=== PATIENT | male | born 1955 | race Caucasian/White ===

== ENCOUNTER 2024-05-10 12:01 | Outpatient (CLI) | payer SELFPAY ==
[2024-05-10 12:40] LABS: Anion Gap 13.9 (5-19); Blood Urea Nitrogen 22 mg/dL (8-23); Calcium 9.6 mg/dL (8.5-10.5); Carbon Dioxide 28 mmol/L (22-29); Chloride 98 mmol/L (98-107); Glomerular Filtration Rate 96.1 mL/min (90-130); Glucose 144 mg/dL (65-115); Osmolality Calculated 288 mOsm/kg (285-295); Potassium 3.9 mmol/L (3.5-5.1); Sodium 136 mmol/L (136-145)
== END 2024-05-10 12:02 | disposition home or self-care (01) ==
LOC: LAB 12:03
PROVIDERS: PCP Internal Medicine; Visit Provider Thoracic Surgery (Cardiothoracic Vascular Surgery)
DX: E11.9 Type 2 diabetes mellitus without complications (principal)
CPT/HCPCS: 36415; 80048

== ENCOUNTER 2024-05-18 07:58 | Outpatient (CLI) | payer SELFPAY ==
--- NOTE | 2024-05-18 08:00 | CTR_ITS ---
PROCEDURE INFORMATION: Exam: CTA Abdominal Aorta and Bilateral Lower Extremities (Run-off) With Contrast Exam date and time: 05/18/2024 8:14 AM Age: 68 years old Clinical indication: Other: -rt anterior ankle non-healing wound x 3-4 weeks. Prior surgery; Surgery date: 6+ months; Surgery type: Abd aorta, colon resection, gb, appy, pacemaker, caridiac stents, stents in groin; Additional info: Non-healing ulcer; Pad, urgent limb in jeopardy. -rt anterior ankle non-healing wound x 3-4 weeks. TECHNIQUE: Imaging protocol: Computed tomographic angiography of the of the abdominal aorta, pelvis and bilateral lower extremities with contrast. 3D rendering (Not supervised by radiologist): MIP and/or 3D reconstructed images were created by the technologist. Radiation optimization: All CT scans at this facility use at least one of these dose optimization techniques: automated exposure control; mA and/or kV adjustment per patient size (includes targeted exams where dose is matched to clinical indication); or iterative reconstruction. Contrast material: OMNI 350; Contrast volume: 120 ml; Contrast route: INTRAVENOUS (IV); COMPARISON: No relevant prior studies available. RADIATION DOSE METRICS: Total DLP (mGy-cm): 1444.06 FINDINGS: Aorta: Atherosclerotic calcifications of the aorta in the iliac vessels. Minimal mural thrombus. No aneurysm. Celiac trunk and mesenteric arteries: No occlusion or significant stenosis. Renal arteries: No occlusion or significant stenosis. Right iliac arteries: Areas of mild stenosis in the right common iliac artery. Right femoral/popliteal arteries: The right superficial femoral artery is occluded at its origin. It reconstitutes at the adductor canal. Right infrapopliteal arteries: Atherosclerotic changes are present in the popliteal artery and the calf arteries with areas of stenosis but three-vessel runoff is present. Left iliac arteries: No occlusion or significant stenosis. Left femoral/popliteal arteries: Atherosclerotic calcifications of the left superficial femoral artery is observed. There are multiple areas of stenosis, some severe. There is short segmental occlusion of the distal SFA with reconstitution at the adductor canal. Left infrapopliteal arteries: Atherosclerotic changes are present in the popliteal artery and runoff vessels. Areas of stenosis are present. Two vessel runoff is present to the ankle. Liver: No mass. Gallbladder and biliary ducts: Contracted gallbladder, presumably physiologic. A tiny gallstone might be present. Pancreas: Unremarkable. No mass. No ductal dilation. Spleen: Normal. No splenomegaly. Adrenal glands: Mild adrenal hyperplasia without measurable mass on each side. Kidneys and ureters: Normal. No mass. Stomach and bowel: Unremarkable. No obstruction. No mucosal thickening. Appendix: No evidence of appendicitis. Urinary bladder: Unremarkable. No mass. Reproductive: Unremarkable as visualized. Intraperitoneal space: Unremarkable. No free air. No significant fluid collection. Lymph nodes: No lymphadenopathy. Bones/joints: Bilateral L5 spondylolysis with mild spondylolisthesis. Soft tissues: Small anterior abdominal wall hernias containing only fat. CT/CT angio abd aorta runof 84623 IMPRESSION: Atherosclerotic disease most severely affecting each SFA, the right is predominantly occluded, the left shows short segmental occlusion.
[2024-05-18] MEDS: iohexol 350 mg/mL 500 mL Btl (per mL) IV (08:27)
== END 2024-05-18 07:59 | disposition home or self-care (01) ==
LOC: RAD 07:59
PROVIDERS: PCP Internal Medicine; Visit Provider Thoracic Surgery (Cardiothoracic Vascular Surgery)
DX: I73.9 Peripheral vascular disease, unspecified (principal); I70.0 Atherosclerosis of aorta; M47.896 Other spondylosis, lumbar region
CPT/HCPCS: 75635

== ENCOUNTER → 2024-05-19 08:56 | Outpatient (BNVA) | payer SELFPAY | PROVIDERS: PCP Internal Medicine; Visit Provider Internal Medicine | DX: R94.31 Abnormal electrocardiogram [ECG] [EKG] (principal); R07.9 Chest pain, unspecified; Z95.0 Presence of cardiac pacemaker | CPT/HCPCS: 93005 ==

== ENCOUNTER 2024-05-23 09:07 | Outpatient (CLI) | payer SELFPAY ==
[2024-05-23] VITALS (29 sets, daily range): BP systolic 92–132; BP diastolic 44–67; PULSE 73–94; RESP 8–29; TEMP 36.4–37.1; O2SAT 90–100; BMI 23.6
--- NOTE | 2024-05-23 09:00 | XACV_ITS ---
Ht: 175 cm Wt: 73 kg BSA: 1.88 m2 Any Known Allergies: No known allergies Gender: Male : 1955 Exam Type: Invasive Peripheral Vascular Procedure(s): Procedure Description: Peripheral Cath Diagnostic Procedure Procedure Description: Lower extremities' angiography Procedure Description: Peripheral vascular Intervention Procedure Description: PV Balloon Procedure Description: PV Atherectomy Exam Priority: Routine Abdominal Diagnostic Findings Distal abdominal aorta is patent. Lower Extremity Diagnostic Findings INDICATION: Non healing right lower extremity wound. Chronic limb threatening ischemia. Right lower extremity findings: Right common iliac to right external iliac artery has severe 90% stenosis. Right common femoral artery has moderate disease. Right SFA is ostially occluded. Profunda artery has moderate disease but is patent and supplying collaterals to the vessels below. Right SFA reconstitutes the distal vessel via collaterals from profunda. Popliteal artery is patent. Below the knee has two-vessel runoff with patent posterior tibial artery and peroneal artery. Anterior tibial artery is occluded.. Left lower extremity: Runoff not performed however has patent iliac arteries and FAUCETS ASSEMBLER. Right SFA is occluded. Right Mid-longitudinal Superficial Femoral Artery: 100% stenosis. Lower Extremity Interventional Findings Procedure detail: Patient had significant of scarring in left groin from prior procedures. With a lot of difficulty were able to place 6 Indian Glidesheath. After diagnostic images were performed, we decided to attempt revascularization via right posterior tibial artery access. 6 Indian sheath was introduced in posterior tibial artery under ultrasound guidance. Using seeker support catheter and Glidewire we crossed the totally occluded SFA and went all the way up to aorta. Through the support catheter, we switched her Glidewire to a Viper wire. Arthrectomy of SFA was performed. We then performed balloon angioplasty using 5.0 x 200 mm balloons starting from ostial SFA all the way down to popliteal artery. However even after multiple angioplasty attempts, flow could not be restored. At this time we decided to abort further attempts, obtain vascular surgical opinion about possible bypass if he is a candidate. Alternative will be to perform stenting of iliac artery to improve inflow and treat SFA medically. . Right Mid-longitudinal Superficial Femoral Artery:100% stenosis treated with AB [place] 35 BUSINESS BANKER Catheter [id number]. Conclusions Severe right sided peripheral artery disease s/p balloon angioplasty and orbital arthrectomy. However flow could not be restored. We will discuss with patient and family and refer to vascular surgery for possible bypass surgery. If they do not want surgical option, will plan on staged intervention of Right iliac artery with possible stenting of ostial SFA. Right Mid-longitudinal Superficial Femoral Artery was treated with Balloon. Recommendations Continue antiplatelet therapy. Outpatient cardiology follow up in 1-2 weeks. If patient wants only percutaneous options, then will perform staged intervention of iliac artery with possible stenting of ostial SFA in 2-4 weeks. Hemodynamic Data Phase:Rest AO : 135.0 / 44.0 ( 68.0 ) @ 12:02:00 PM 96.0 / 53.0 ( 70.0 ) @ 12:16:00 PM 87.0 / 46.0 ( 60.0 ) @ 12:37:00 PM Access Site Site: Left Femoral artery Sheath Size: 6 Fr Hemost... Method: Suture Hemost... Success: Successful Site: Right Pedal Sheath Size: 4 Fr Hemost... Method: TR Band Hemost... Success: Successful Procedure Details Findings Pre-Procedure Time Out. Identified patient by full name and date of as verbalized by the patient/guarantor. Does the consent match the physician's order: Yes. Accurate & Complete Informed Consent: Yes. Inpatient/Outpatient History & Physical on Chart: Yes. If H&P is completed, is and addenduem needed: No. Visualize and Verify Site with Patient/Guarantor: N/A. Relevant Radiology Images available: Yes. Pre-op teaching completed and patient verbalized understanding. The risks, benefits, and alternatives of sedation and/or procedure were discussed by physician. The patient agrees to continue. Procedure started. Correct patient, site and procedure confirmed by cath team. PERRLA. Strong, equal hand service delivery analyst bilaterally. Lungs clear x 5 lobes. IV Site on Arrival: 20 gauge in the left anticubital. IV Fluids: 0.9% NaCl at KVO. 0 mL infused prior to cath laboratory technician. Pre Procedural Pulses: bilateral radial was 2+. Pre Procedural Pulses: bilateral posterior tibial was Doppled. Pre Procedural Pulses: right dorsalis pedis was Absent. Pre Procedural Pulses: right posterior tibial was Doppled. Oxygen started at 2liters/min via nasal canula. bilateral groins was prepped with chloroprep then draped in the usual sterile fashion. Physician notified. Baseline sample Acquired. HR: 97 BPM. Patients Veda brennan is in the cath laboratory technician waiting room. Dr. Pillai will update at the completion of the procedure. Equipment: 6F - Femoral. Cardiac Cath Pack. ACIST Manifold Kit Model BT 2000. Heparinized Saline (2 units/mL), 1000 mL bag. Kit, Micropuncture. Physician arrived. Physician scrubbed in. Immediate Pre-Procedure Time Out. Correct Patient: Yes; Correct Procedure: Yes; Correct Site: Yes; Correct Patient Position: Yes; Correct Supplies: Yes; Dried Flammable Prep: Yes; Blood Products Available: N/A;. Lidocaine 1% infiltrated to the left groin. Arterial access obtained with micropuncture set. hand injection performed through the access needle. Access needle out. Dr. Pillai holding manual pressure. Arterial access obtained with micropuncture set using ultrasound guidance. An attempt to gain access to the left femoral artery was unsuccessful. Manual pressure was held as needed to stop the bleeding. Lidocaine 1% infiltrated to the left groin. Arterial access obtained with micropuncture set using ultrasound guidance. 6 fr Cordis dilator in. Hand injection performed through the sheath. A 5 Fr UF catheter in over wire. Pigtail postioned above the bifurcation of the iliacs. Aortagram performed @ 10 mL/sec for a total of 30 mL. Glidewire in through the UF catheter. Glidewire out. Right common iliac selected and arteriogram with runoff performed @ 10 mL/sec for a total of 30 mL. right pedal was prepped with chloroprep then draped in the usual sterile fashion. Lidocaine 1% infiltrated to the right pedal. The patients Veda brennan, updated by Thony Blum RN, MERCERIZER MACHINE OPERATOR. Arterial access obtained with pedal access kit using ultrasound guidance. UF catheter hooked up to KVO. Sheath upsized to a 6 Fr. Seeker catheter inserted over the glidewire. Glidewire out. Viperwire in through the seeker support catheter. Seeker catheter out OTW. 1.5mm x 145cm Diamondback peripheral orbital atherectomy system in over the Viperwire. Atherectomy of the Right SFA performed x 5. Atherectomy device out over the Viperwire. Seeker support catheter in over the Viperwire. Viperwire out. Glidewire in through the Seeker support catheter. Inflation number : 1 A AB [place] 35 BUSINESS BANKER Catheter [id number] was prepped and advanced across the Superficial Femoral, Right , then inflated to 8 JASVIR for 1:30 seconds. Inflation number: 2 The AB [place] 35 BUSINESS BANKER Catheter [id number] was reinflated across the Superficial Femoral, Right, to 8 JASVIR for 1:32 seconds. Inflation number: 3 The AB [place] 35 BUSINESS BANKER Catheter [id number] was reinflated across the Superficial Femoral, Right, to 8 JASVIR for 1:01 seconds. Balloon out. Right superficial femoral selected and arteriogram with runoff performed @ 10 mL/sec for a total of 30 mL. Glidewire out. Seeker support catheter out. UF catheter out over the standard J wire. ACT drawn. Results 240 seconds. Therapeutic limits - pre-heparin administration 90-150 seconds and monitoring heparin during a vascular procedure >[address] Pillai scrubbed out. A Suture was successful obtaining hemostatsis at the Left Femoral artery insertion site. A TR Band was successful obtaining hemostatsis at the Right Pedal insertion site. Sheath(s) sutured into position with 2-0 silk and sterile 4x4's and Op-site applied over the site. No oozing or signs and symptoms of hematoma noted. Arterial sheath flushed and connected to tranducer and pressure bag with heparinized saline. Post Procedure: Pulses reassessed and unchanged. PERRLA. Strong, equal hand service delivery analyst bilaterally. No VTE prophylaxis required. Medication's Wasted: Lidocaine 1% = 15 mL. Medication's Wasted: Heparin = 3000 Units. Total IV fluids: 200 mL. Post-op diagnosis: Balloon angioplasty with atherectomy of the right SFA. Unsuccessful revascularization. Complications: none. Estimated blood loss: 5mL-10mL. Responsiveness - Normal response to verbal stimuli; alert and oriented, PERRLA. Airway - Unaffected, no intervention required; spontaneous ventilation. Circulation: W/N/L, pulses unchanged. Nausea/Vomiting: No. Procedure completed. Patient transferred by bed to CPRU. Vital chart was stopped. Procedure Medications Start: 10:23 AM Stop: 10:23 AM Medication: Versed Amount: 1 mg Route: I.V. Start: 10:24 AM Stop: 10:24 AM Medication: Fentanyl Amount: 50 mcg Route: I.V. Start: 10:32 AM Stop: 10:32 AM Medication: Versed Amount: 1 mg Route: I.V. Start: 11:18 AM Stop: 11:18 AM Medication: Versed Amount: 1 mg Route: I.V. Start: 11:25 AM Stop: 11:25 AM Medication: Heparin Amount: 3000 units Route: I.V. Start: 11:28 AM Stop: 11:28 AM Medication: Heparin Amount: 1000 units Route: I.V. Start: 11:30 AM Stop: 11:30 AM Medication: Heparin Amount: 1000 units Route: I.V. Start: 11:50 AM Stop: 11:50 AM Medication: Versed Amount: 1 mg Route: I.V. Start: 11:51 AM Stop: 11:51 AM Medication: Fentanyl Amount: 25 mcg Route: I.V. Start: 11:53 AM Stop: 11:53 AM Medication: Heparin Amount: 1000 units Route: I.V. Start: 11:57 AM Stop: 11:57 AM Medication: Fentanyl Amount: 25 mcg Route: I.V. I, the attending physician, have reviewed and verified all procedure medications. Yes, all medications given per verbal order History/Risk Factors Hypertension: Yes Dyslipidemia: No Peripheral Arterial Disease (PAD): Yes Obesity: No Renal Disease: No Tobacco Use: Former Prior Interventions PCI: Yes CABG: No Valve Surgery: No Report Signatures Finalized by Jose Enrique Pillai MD on 05/25/2024 11:21 AM
[2024-05-23] MEDS: diphenhydrAMINE 50 mg Capsule PO (09:40)
--- NOTE | 2024-05-23 10:21 | W.PM.OPSUD ---
Surgery/Procedure H&P Update DATE OF PROCEDURE: May 23, 2024 DATE H&P PERFORMED: 05/19/24 H&P UPDATE INFORMATION: I have reviewed H&P completed within last 30 days, I have examined patient prior to procedure and No changes to prior documentation PREOP DIAGNOSIS: Non healing wound of right lower extremity/ Severe Peripheral artery diseas PRIMARY INDICATION FOR PROCEDURE: Non healing wound of right lower extremity/ Severe Peripheral artery disease/ Chronic limb threatening ischemia PLANNED PROCEDURE: Operation Date: 05/23/24 10:00 Proposed Procedures p Peripheral Diagnostic - Periph Angio Bilat(Bilateral) - Jose Enrique Pillai M.D Possible intervention PATIENT REASSESSED PRIOR TO SEDATION, WITH NO CHANGE NOTED: Yes PHYSICAL EXAM: alert, oriented x 3, clear to auscultation bilaterally and regular rate & rhythm AIRWAY EVAL/ANESTHESIA PLAN: normal airway, ASA III, Local Anesthesia, Risks, benefits & alternatives of sedation and/or procedure discussed and Patient agrees to continue as planned ADDITIONAL INFORMATION: Moderate sedation
[2024-05-23 10:36] LABS: Basophils % 0.5 %; Eosinophils # 0.2 10^3/uL (0.0-0.8); Eosinophils % 1.8 %; Lymphocytes # 2.1 10^3/uL (0.8-4.8); Mean Corpuscular HGB Conc 32.2 g/dL (30-55); Mean Corpuscular Hemoglobin 28.3 pg (27-33); Mean Corpuscular Volume 87.8 fl (82-101); Mean Platelet Volume 9.5 fL (7.4-10.4); Monocytes # 0.6 10^3/uL (0.2-0.9); Monocytes % 6.7 %; Neutrophils # 5.51 10^3/uL (1.8-7.7); Neutrophils % 65.8 %; Nucleated Red Blood Cells % 0 %; Platelet Count 213 10^3/cmm (157-399); Red Blood Count 4.67 10^6/uL (3.85-5.65); Red Cell Distribution Width 17.2 % (12.1-15.1); White Blood Count 8.37 10^3/uL (3.29-11.43)
--- NOTE | 2024-05-23 12:45 | SUR.PHASEI ---
POST CATH NOTE Received patient from supervisor laboratory animal facility. Status post cardiac catheterization via the left femoral approach. Site is hemostatic and pressurized. No s/s of active bleeding or hematoma present at this time. TR Band in place to right posterior tibial artery. That site is also hemostatic and free of hematoma formation. Family at bedside and MD is in to discuss the findings of today's procedure with the patient. Verbal post cath orders given to the family/patient. They understood well. Informed to call for needs. Call light within easy reach. Awaiting bed for further recovery.
--- NOTE | 2024-05-23 13:15 | SUR.PHASEI ---
LEG PAIN Pt c/o leg pain 12/16. States he has been taking percocet at home from a family memeber to sleep. His wounds on his lower legs rub the bed and are causing discomfort. MD notified because patient has no prn pain medications ordered. MD states to give a one time dose of morphine 2 mg IV now for pain relief and he will reassess once the patient goes to ICU for longer term managment. Orders noted.
[2024-05-23] MEDS: morphine 4 mg/mL SDV 1 mL 2 MG IVP (13:30)
[2024-05-23] MEDS: fentaNYL 50 mcg/mL INJ 2mL IVP (16:56)
[2024-05-23] MEDS: FUROsemide 40 mg Tablet PO (17:37)
--- NOTE | 2024-05-23 18:42 | PC.NURSE ---
Physician notified of questionable dorsal pedis pulse in left lower leg and cool extremity. Popiteal pulse found with doppler.
[2024-05-23] MEDS: sodium chloride 0.9% 1,000 ML 50 ML IV (19:00)
[2024-05-23] MEDS: HYDROcodone-acetaminophen 5-325 mg Tablet 1 TAB PO (20:25)
[2024-05-23] MEDS: temazepam 15 mg Capsule PO (20:26)
[2024-05-24] VITALS (7 sets, daily range): BP systolic 95–112; BP diastolic 46–59; PULSE 69–86; TEMP 37.1; O2SAT 94–99
[2024-05-24] MEDS: ALPRAZolam 0.5 mg Tablet 0.25 MG PO (00:23)
--- NOTE | 2024-05-24 07:14 | PC.NURSE ---
Patient voiced concerns over kidney status as this nurse started iv fluids at shift change. States his father due to contrast related kidney injury - I will matt if it happens to me . Patient recieved iv fluids all night, voided x 2 total 900 cc urine.
[2024-05-24] MEDS: FUROsemide 40 mg Tablet PO (08:36)
[2024-05-24] MEDS: HYDROcodone-acetaminophen 5-325 mg Tablet 1 TAB PO (08:36)
[2024-05-24] MEDS: clopidogrel 75 mg Tablet PO (08:37)
[2024-05-24] MEDS: atorvastatin 40 mg Tablet PO (08:37)
[2024-05-24] MEDS: aspirin 81 mg Chew Tablet PO (08:37)
[2024-05-24] MEDS: losartan 50 mg Tablet 25 MG PO (08:51)
[2024-05-24 10:11] LABS: Blood Urea Nitrogen 14 mg/dL (8-23); Calcium 8.4 mg/dL (8.5-10.5); Carbon Dioxide 23 mmol/L (22-29); Chloride 103 mmol/L (98-107); Creatinine Clr Calc Pharmacy 89.3125; Glucose 156 mg/dL (65-115); Osmolality Calculated 282 mOsm/kg (285-295); Sodium 134 mmol/L (136-145)
--- NOTE | 2024-05-24 10:56 | PM.DCS ---
Discharge Providers Date of Admission: May 23, 2024 Date of Discharge: May 24, 2024 Attending Provider at Admission: Jose Enrique Pillai MD Attending Provider at Discharge: Jose nErique Pillai M.D Primary Care Provider: Lea Acevedo MD Reason for Visit Reason for Visit: Peripheral angiogram Brief History: 68-year-old man with past medical history of CAD, congestive heart failure, nonhealing wounds on right lower extremity with severe claudication scheduled to have peripheral angiogram with possible intervention. Hospital Course Hospital Course Peripheral angiogram demonstrated critical stenosis of right common iliac to external iliac artery and total occlusion of ostial SFA with reconstitution in distal segment from profunda artery. Below the knee has two-vessel runoff. We attempted revascularization of SFA via posterior tibial approach. Arthrectomy and balloon angioplasty were performed however flow was not restored. We aborted further attempts and avoided placing stent in ostial SFA to send patient for vascular surgery evaluation for possible bypass surgery. Patient and family decided they do not want surgery. We will plan on a staged procedure for intervention of iliac artery with possible stenting of ostial SFA. Patient stayed in the hospital overnight and was stable. Discharged home with outpatient cardiology follow up. Physical Exam Narrative: GENERAL: Patient is alert, awake and oriented x3. [] NECK: No jugular vein distension. [] HEENT: No cyanosis. No icterus. No pallor. [] HEART: Regular S1 and S2. No murmur, rub or gallop. [] LUNGS: Clear to auscultate bilaterally. [] CENTRAL NERVOUS SYSTEM: Grossly nonfocal. [] EXTREMITIES: Right lower extremity has dressing applied on wound on lower anterior barbosa just above the ankle. Pulses not palpable. Discharge Data Studies Completed and Pending Pending at discharge Category Date Time Status DIRECTOR OF GROUP SALES request for service Routine Exams 05/23/24 09:00 Taken Laboratory Results WBC 8.37 10^3/uL (3.29-11.43) 05/23/24 10:17 RBC 4.67 10^6/uL (3.85-5.65) 05/23/24 10:17 Hgb 13.20 g/dL (11.27-16.99) 05/23/24 10:17 Hct 41.0 % (37-53) 05/23/24 10:17 MCV 87.8 fl (82-101) 05/23/24 10:17 MCH 28.3 pg (27-33) 05/23/24 10:17 MCHC 32.2 g/dL (30-55) 05/23/24 10:17 RDW 17.2 % (12.1-15.1) H 05/23/24 10:17 Plt Count 213 10^3/cmm (157-399) 05/23/24 10:17 MPV 9.5 fL (7.4-10.4) 05/23/24 10:17 Neut % (Auto) 65.8 % 05/23/24 10:17 Lymph % (Auto) 25.0 % 05/23/24 10:17 [place] % (Auto) 6.7 % 05/23/24 10:17 Eos % (Auto) 1.8 % 05/23/24 10:17 Baso % (Auto) 0.5 % 05/23/24 10:17 Neut # (Auto) 5.51 10^3/uL (1.8-7.7) 05/23/24 10:17 Lymph # (Auto) 2.1 10^3/uL (0.8-4.8) 05/23/24 10:17 [place] # (Auto) 0.6 10^3/uL (0.2-0.9) 05/23/24 10:17 Eos # (Auto) 0.2 10^3/uL (0.0-0.8) 05/23/24 10:17 Baso # (Auto) 0.0 10^3/uL (0.0-0.1) 05/23/24 10:17 Nucleated RBC % (auto) 0 % 05/23/24 10:17 Nucleated RBCs # 0.0 /100WBC 05/23/24 10:17 APTT 35.0 SECONDS (23.9-36.7) 05/23/24 15:35 Sodium 134 mmol/L (136-145) L 05/24/24 09:47 Potassium 4.0 mmol/L (3.5-5.1) 05/24/24 09:47 Chloride 103 mmol/L (98-107) 05/24/24 09:47 Carbon Dioxide 23 mmol/L (22-29) 05/24/24 09:47 Anion Gap 12.0 (5-19) 05/24/24 09:47 BUN 14 mg/dL (8-23) 05/24/24 09:47 Creatinine 0.6 mg/dL (0.7-1.2) L 05/24/24 09:47 GFR Calculation 134.0 mL/min (90-130) H 05/24/24 09:47 Glucose 156 mg/dL (65-115) H 05/24/24 09:47 Calculated Osmolality 282 mOsm/kg (285-295) L 05/24/24 09:47 Calcium 8.4 mg/dL (8.5-10.5) L 05/24/24 09:47 Vitals Last Vital Signs Temp 98.7 F 05/24/24 01:00 Pulse 70 05/24/24 06:00 Resp 16 05/23/24 17:00 BP 112/56 05/24/24 08:51 Pulse Ox 99 05/24/24 04:00 O2 Del Method Nasal Cannula 05/24/24 04:00 O2 Flow Rate 2 05/24/24 04:00 Discharge Plan Discharge Patient Disposition: Home Prescriptions: New tramadol 50 mg tablet 50 mg PO BID PRN (Reason: pain) 10 Days Qty: 20 0RF Continued dapagliflozin propanediol [Farxiga] 10 mg tablet 10 mg PO DAILY rosuvastatin [Crestor] 40 mg tablet 40 mg PO DAILY losartan [Cozaar] 25 mg tablet 25 mg PO DAILY metoprolol tartrate 25 mg tablet 25 mg PO DAILY furosemide 40 mg tablet 40 mg PO BID aspirin [Aspirin Childrens] 81 mg tablet,chewable 81 mg PO DAILY clopidogrel [Plavix] 75 mg tablet 75 mg PO DAILY spironolactone 25 mg tablet 25 mg PO DAILY Discharge Orders: Discharge Order (Routine); Ordered 05/24/24 Ordered By: Jose Enrique Pillai Referrals: Mee Crawford FNP [Nurse Practitioner] - 7-10 days (Wound Care Appt 05/31/24 @0845) Diet: Cardiac Activity: Increase activity as tolerated Patient Instructions: Tramadol (By mouth), Chest Pain (DC), Peripheral Vascular Stent Placement (DC), Peripheral Vascular Angioplasty (DC), Post Angiogram Home Care Instructions Discharge Date/Time: 05/24/24 11:34 Discharge Attestations Time Spent in Discharge Care*: less than 30 min Quality Metrics Clinical Quality Measures [ No reported AMI, CVA or VTE this stay] Coding Level of Care Code Acute Code for Chg Fwd
--- NOTE | 2024-05-24 11:30 | PC.NURSE ---
Patient's IV was taken out before discharge. All discharge instructions were given and discharge appointments were made. Instructions on new medication were given.
== END 2024-05-24 11:34 | disposition home or self-care (01) ==
LOC: CCL 09:34 → ICU 05-24 06:37
PROVIDERS: PCP Internal Medicine; Visit Provider Internal Medicine
DX: I70.201 Unspecified atherosclerosis of native arteries of extremities, right leg (principal); I11.0 Hypertensive heart disease with heart failure; I50.9 Heart failure, unspecified; Z87.891 Personal history of nicotine dependence; I25.10 Atherosclerotic heart disease of native coronary artery without angina pectoris; Z79.82 Long term (current) use of aspirin; E78.5 Hyperlipidemia, unspecified; L98.499 Non-pressure chronic ulcer of skin of other sites with unspecified severity; E11.621 Type 2 diabetes mellitus with foot ulcer
CPT/HCPCS: 36415; 37224; 37225; 75625; 75710; 80048; 85025; 85347; 85730; 96374; 99152; 99153; C1724; C1725; C1769; C1887; C1894; J1644; J2250; J2270; J3010; J3490; J7030; Q0163; Q9967

== ENCOUNTER → 2024-05-31 08:30 | Outpatient (BNVA) | payer MEDICAID, SELFPAY | PROVIDERS: PCP Internal Medicine; Visit Provider Thoracic Surgery (Cardiothoracic Vascular Surgery) | DX: E11.52 Type 2 diabetes mellitus with diabetic peripheral angiopathy with gangrene (principal); E11.621 Type 2 diabetes mellitus with foot ulcer; L97.511 Non-pressure chronic ulcer of other part of right foot limited to breakdown of skin; E11.622 Type 2 diabetes mellitus with other skin ulcer; L97.311 Non-pressure chronic ulcer of right ankle limited to breakdown of skin | CPT/HCPCS: 97597 ==